=== PATIENT | female | born 1970 | race Caucasian/White ===

== ENCOUNTER 2018-01-11 18:52 | Emergency (ER) | payer SELFPAY ==
[2018-01-11 19:13] VITALS: BP 169/107; PULSE 100; O2SAT 99
--- NOTE | 2018-01-11 19:20 | ERPHSYRPT ---
- History of Present Illness Time Seen by Provider: 01/11/18 19:05 Source: patient Exam Limitations: no limitations Patient Subjective Stated Complaint: rash to left breast/ribs began yesterday. no injury Triage Nursing Assessment: no vesicles. appears to be discoloration. Physician History: 47 y/o female comes to the ER with complaints of left chest wall pain with rash that started 2 days ago. Pt describes the pain as sharp, constant, 6/10, worse with light touch and not relieved by naproxen. Pt denies any fever, chills, chest pain, shortness of breath or sick contacts. Timing/Duration: day(s) Quality: painful Severity: moderate Location: torso Possible Causes: no cause identified Associated Symptoms: denies symptoms Allergies/Adverse Reactions: No Known Drug Allergies Allergy (Unverified 01/11/18 19:13) Home Medications: Multivitamin [Multivitamins] 1 tab PO DAILY 01/11/18 [History] - Review of Systems Constitutional: No Fever, No Chills Eyes: No Symptoms Ears, Nose, & Throat: No Symptoms Respiratory: No Cough, No Dyspnea Cardiac: Chest Pain, No Edema, No Syncope Abdominal/Gastrointestinal: No Abdominal Pain, No Nausea, No Vomiting, No Diarrhea Genitourinary Symptoms: No Dysuria Musculoskeletal: No Back Pain, No Neck Pain Skin: Rash Neurological: No Dizziness, No Focal Weakness, No Sensory Changes Psychological: No Symptoms Endocrine: No Symptoms All Other Systems: Reviewed and Negative - Past Medical History Pertinent Past Medical History: Yes Other Medical History: bowel obstruction - Past Surgical History Female Surgical History: Hysterectomy, Breast Implant - Social History Smoking Status: Never smoker Exposure to second hand smoke: No Drug Use: none Patient Lives Alone: No - Female History Hx Now: No - Nursing Vital Signs Nursing Vital Signs: Initial Vital Signs Temperature 98.8 F 01/11/18 19:05 Pulse Rate 100 H 01/11/18 19:05 Respiratory Rate 16 01/11/18 19:05 Blood Pressure 169/107 01/11/18 19:05 O2 Sat by Pulse Oximetry 99 01/11/18 19:05 Pain Scale Pain Intensity 6 - Physical Exam General Appearance: no apparent distress, alert Eye Exam: PERRL/EOMI, eyes nml inspection Ears, Nose, Throat Exam: normal ENT inspection, pharynx normal, moist mucous membranes Neck Exam: normal inspection, non-tender, supple, full range of motion Respiratory Exam: normal breath sounds, lungs clear, No respiratory distress Cardiovascular Exam: regular rate/rhythm, normal heart sounds, normal peripheral pulses, other (tenderness along the left chest wall) Gastrointestinal/Abdomen Exam: soft, mass, No tenderness Back Exam: normal inspection, normal range of motion, No CVA tenderness, No vertebral tenderness Extremity Exam: normal inspection, normal range of motion Neurologic Exam: alert, oriented x 3, cooperative, normal mood/affect, sensation nml, No motor deficits Skin Exam: normal color, warm, dry, rash (rash that extends from left nipple area to axilla) SpO2: 99 Oxygen Delivery: Room Air - Course Nursing assessment & vital signs reviewed: Yes - Progress Progress: unchanged Progress Note: 01/11/18 19:17 Pt has clinical signs of shingles. The patient will be d/c home on valtrex and percocet. - Departure Time of Disposition: 19:18 Departure Disposition: Home Clinical Impression: Shingles Qualifiers: Herpes zoster complications: without complications Qualified Code(s): B02.9 - Zoster without complications Condition: Stable Critical Care Time: No Instructions: Shingles (DC) Additional Instructions: Finish the valtrex until completion. Return to the ER next week if you should have worsening pain, fever or the rash should spread. Prescriptions: Oxycodone HCl/Acetaminophen [Percocet 5-325 mg Tablet] 1 each PO QID PRN #16 tablet MDD 4 PRN Reason: Pain Valacyclovir HCl [Valtrex] 1,000 mg PO TID #21 tablet
== END 2018-01-11 19:28 | disposition home or self-care (01) ==
LOC: ED 18:52
DX: B02.9 Zoster without complications (principal)
CPT/HCPCS: 99283